=== PATIENT | female | born 1990 | race Caucasian/White ===

== ENCOUNTER 2019-01-26 12:42 | Emergency (ER) | payer MEDICAID, OTHER ==
[~2019-01-26] VITALS: Ht 165.1 cm; Wt 79.8 kg
[2019-01-26 13:12] VITALS: BP 125/79
--- NOTE | 2019-01-26 15:55 | NUR ---
1ST CALL PARESH ALANIZ N/A
--- NOTE | 2019-01-26 15:59 | NUR ---
2ND CALL PARESH ALANIZ [phone] 3ND CALL PARESH ALANIZ [id number]
== END 2019-01-26 15:55 | disposition left against medical advice (07) ==
LOC: MED 12:42
DX: R10.30 Lower abdominal pain, unspecified (principal); R05 Cough; Z53.21 Procedure and treatment not carried out due to patient leaving prior to being seen by health care provider
CPT/HCPCS: 81002; 81025

== ENCOUNTER 2019-02-27 07:09 | Emergency (ER) | payer OTHER ==
[~2019-02-27] VITALS: Ht 165.1 cm; Wt 79.0 kg
[2019-02-27 07:24] VITALS: BP 125/79
--- NOTE | 2019-02-27 07:26 | NUR ---
BIB SELF. AAOX4 C/O LIP PAIN 07/04 S/P LIP PIERCING DONE A MONTH AGO AND PER PT COULD NOT REMOVE THE PIERCING A WK AGO. SWELLING ON THE LIP. PT STATES WHITE/GREEN DISCHARGE NOTED 5 DAYS AGO. PT STATES IBUPROFEN TAKEN YESTERDAY FOR PAIN. NO FEVER. PT DENIES N/V/D. HOB UP. BED SIDE RAILS UP X1. ON LOW BED POSITION. ER MADE AWARE OF PT STATUS.
--- NOTE | 2019-02-27 07:26 | NUR ---
Note undone in EDM - 02/27/19 at 0823 by MED BIB SELF. AAOX4 C/O LIP PAIN 8/10 S/P LIP PIERCING DONE A MONTH AGO AND PER PT COULD NOT REMOVE THE PIERCING A WK AGO. SWELLING ON THE LIP. PT STATES WHITE/GREEN DISCHARGE NOTED 5 DAYS AGO. PT STATES IBUPROFEN TAKEN YESTERDAY FOR PAIN. HOB UP. BED SIDE RAILS UP X1. ON LOW BED POSITION. MD YODER MADE AWARE OF PT STATUS.
--- NOTE | 2019-02-27 08:20 | NUR ---
DR ERWIN AT BEDSIDE FOR PT EVALUATION
[2019-02-27] MEDS ORDERED: LIDOCAINE/EPI 1% 1:100000 20 ML VIAL INJ ONE (08:30)
--- NOTE | 2019-02-27 08:34 | NUR ---
Kehinde/bennie at bedside, tyrese EMT set up for bedside procedure.
--- NOTE | 2019-02-27 09:44 | NUR ---
PARESH RIVERA AT BEDSIDE PERFORMING INCISION AND DRAINAGE AT THIS TIME Addendum: 02/27/19 at 0944 by BO RECIEVED INFORMED CONSENT FROM PT.
--- NOTE | 2019-02-27 10:18 | NUR ---
PT TOLERATED PROCEDURE WELL.
--- NOTE | 2019-02-27 10:20 | NUR ---
PT IS AAOX4. PT STATES RELIEF OF PAIN. PT STATES 0/10.
[2019-02-27 10:43] VITALS: BP 117/73
== END 2019-02-27 10:43 | disposition home or self-care (01) ==
LOC: MED 07:09
DX: S00.551A Superficial foreign body of lip, initial encounter (principal); L08.9 Local infection of the skin and subcutaneous tissue, unspecified; X58.XXXA Exposure to other specified factors, initial encounter; Y93.89 Activity, other specified; Y92.89 Other specified places as the place of occurrence of the external cause; Y99.8 Other external cause status
CPT/HCPCS: 10120; 99284; J2001

== ENCOUNTER 2023-08-01 03:15 | Emergency (ER) | payer OTHER ==
[~2023-08-01] VITALS: Ht 165.1 cm; Wt 81.6 kg
[2023-08-01 03:20] VITALS: BP 120/66; PULSE 100; RESP 16; TEMP 97.5; O2SAT 100
[2023-08-01] MEDS ORDERED: methocarbamoL 500 MG TAB PO STA (03:32)
[2023-08-01] MEDS ORDERED: KETOROLAC 15 MG/ML VIAL IM ONE (03:35)
[2023-08-01] MEDS ORDERED: ACETAMINOPHEN 325 MG TAB PO ONE (03:35)
[2023-08-01 03:50] LABS: BASOPHILS % (AUTO) 0.2 % (0.0-2.0); EOSINOPHILS # (AUTO) 0.1 K/uL (0-0.4); EOSINOPHILS % (AUTO) 0.9 % (0.0-4.0); HEMATOCRIT 36.3 % (36-48); HEMOGLOBIN 12.1 g/dL (12.0-16.0); LYMPHOCYTES # (AUTO) 1.4 K/uL (2.5-16.5); LYMPHOCYTES % (AUTO) 11.8 % (20.5-51.1); MEAN CORPUSCULAR HEMOGLOBIN 29 pg (27-31); MEAN CORPUSCULAR HGB CONC 33 g/dL (33-37); MEAN CORPUSCULAR VOLUME 87.8 fL (80-94); MONOCYTES # (AUTO) 1.2 K/uL (0.8-1.0); MONOCYTES % (AUTO) 10.5 % (1.7-9.3); NEUTROPHILS % (AUTO) 76.6 % (42.2-75.2); PLATELET COUNT (AUTO) 179 K/uL (140-450); RED BLOOD CELL COUNT(AUTO) 4.14 MIL/uL (4.20-5.40); RED CELL DISTRIBUTION WIDTH 13.2 % (11.6-13.7); WHITE BLOOD COUNT (AUTO) 11.7 K/uL (4.8-10.8)
[2023-08-01 03:50] LABS: APPEARANCE,URINE CLOUDY (CLEAR); BILIRUBIN,URINE NEGATIVE (NEGATIVE); BLOOD, URINE 2+ (NEGATIVE); COLOR,URINE YELLOW (YELLOW); LEUKOCYTE ESTERASE ,URINE 2+ (NEGATIVE); NITRITE, URINE POSITIVE (NEGATIVE); PROTEIN,URINE 2+ (NEGATIVE); UGLUCOSE NEGATIVE (NEGATIVE); UROBILINOGEN,URINE 0.2 EU/dL (0.2 - 1)
[2023-08-01 04:01] LABS: RBC,URINE 11-20 (MOD) /HPF (0-5); WBC,URINE TOO MANY TO COUNT /HPF (0-5)
[2023-08-01 04:02] LABS: BACTERIA,URINE 10-30 (MOD) /HPF (None Seen); MUCUS,URINE 1+ /LPF (None Seen); SQUAMOUS EPITHELIAL CELL,UR 4-10 (MOD) /LPF (0-3 (FEW))
[2023-08-01 04:07] LABS: FLU A ANTIGEN negative (NEGATIVE); FLU B ANTIGEN NEGATIVE (NEGATIVE)
[2023-08-01 04:08] LABS: CALCIUM 8.5 mg/dL (8.5-10.1); CARBON DIOXIDE 28.5 mmol/L (21-32); CREATININE 0.8 mg/dL (0.6-1.3); POTASSIUM 3.5 mmol/L (3.5-5.1); TOTAL BILIRUBIN 0.3 mg/dL (0.0-1.0)
[2023-08-01] MEDS ORDERED: cephALEXin 500 MG CAP PO ONE (04:10)
[2023-08-01] MEDS ORDERED: CEPH-588 PO (04:30)
[2023-08-01 04:52] VITALS: BP 120/66; PULSE 100; RESP 16; TEMP 97.5; O2SAT 100
== END 2023-08-01 04:48 | disposition home or self-care (01) ==
LOC: MED 03:15
DX: N12 Tubulo-interstitial nephritis, not specified as acute or chronic (principal); Z79.899 Other long term (current) drug therapy; Z20.822 Contact with and (suspected) exposure to COVID-19
CPT/HCPCS: 36415; 80053; 81001; 81025; 85025; 87086; 87426; 87804; 96372; 99284; J1885